=== PATIENT | male | born 1975 | race Caucasian/White ===

== ENCOUNTER 2020-08-08 13:24 | Emergency (ER) | payer OTHER, MEDICAID, SELFPAY ==
[2020-08-08 14:11] VITALS: BP 147/80; PULSE 75; RESP 16; TEMP 36.4; O2SAT 99
--- NOTE | 2020-08-08 17:05 | ED.EXTPRO ---
HPI - Extremity Problem General Chief complaint: Extremity Problem,Nontraumatic Stated complaint: DVT Time Seen by Provider: 08/08/20 16:57 Source: patient Mode of arrival: Ambulatory Limitations: no limitations History of Present Illness HPI Narrative: 45-year-old male who has a known right lower extremity DVT. He is on Xarelto. He states that he missed 1 day of his Xarelto at the end of last week. He states that after that he started having pain on the outside of his right leg. He immediately started taking his anticoagulation again. The discomfort is still there. He has not tried anything for his symptoms. Related Data Home Medications Medication Instructions Recorded Confirmed bupropion HCl 300 mg PO DAILY 08/08/20 08/08/20 divalproex [Depakote ER] mg PO DAILY 08/08/20 emtricitabine-tenofovir alafen 1 tab PO 08/08/20 [Descovy] rivaroxaban [Xarelto] 20 mg PO DAILY 08/08/20 08/08/20 Allergies Allergy/AdvReac Type Severity Reaction Status Date / Time No Known Drug Allergies Allergy Verified 08/08/20 14:13 Review of Systems Constitutional Constitutional: Denies fever(s) and Denies headache(s) ENT Ears, Nose, Mouth, and Throat: Denies headache(s) Cardiovascular Cardiovascular: Denies chest pain and Denies dyspnea Respiratory Respiratory: Denies dyspnea Gastrointestinal Gastrointestinal: Denies abdominal pain Musculoskeletal Comments: Right leg pain Integumentary/Breasts Skin/Breast: Denies lesions and Denies rash Neurologic Neurologic: Denies behavioral changes and Denies headache(s) Psychiatric Psychiatric: Denies behavioral changes Hematologic/Lymphatic On Anticoagulants: Yes Allergic/Immunologic Allergic/Immunologic: Denies urticaria Patient History Medical History DVT (deep venous thrombosis) Social History Smoking Status: Never smoker Smoking Status: Never smoker alcohol intake frequency: other Substance Use Type: marijuana Exam Initial Vital Signs Initial Vital Signs: Vital Signs Temperature 97.6 F 08/08/20 14:11 Pulse Rate 75 08/08/20 14:11 Respiratory Rate 16 08/08/20 14:11 Blood Pressure 147/80 H 08/08/20 14:11 Pulse Oximetry 99 08/08/20 14:11 Const General: cooperative and comfortable Limitations: mental status not altered HENMT Head: normal to inspection and normocephalic Resp Effort & Inspection: normal respiratory effort Cardio Rate: regular rate Skin Lesions: no lesions Rashes: no rashes Extrem General: normal to inspection, capillary refill normal and No edema Other: Tenderness to palpation along the lateral aspect of the right calf Psych Appearance: grossly normal and well kempt Course Vital Signs Vital signs: Vital Signs - 8 hr 08/08/20 14:11 Temperature 97.6 F Pulse Rate 75 Respiratory Rate 16 Blood Pressure 147/80 H Pulse Oximetry 99 MDM - Extremity (Nontraumatic) MDM Narrative Medical decision making narrative: Patient's skin looks unremarkable. Low suspicion for compartment syndrome. He does not have tenderness along the deep venous system. There is no swelling in his lower extremity. I feel we can hold on further workup for now. He was given return precautions and follow-up instructions. He expressed understanding and agreement. Discharge Plan Departure Patient Disposition: Home Clinical Impression: Pain in right leg Instructions: DI for Leg Pain Activity Restrictions/Additional Instructions: Recommend that you continue all of your medications as directed. Contact your primary provider for a follow-up. Return to the emergency department for any new or worsening symptoms Prescriptions: No Action divalproex [Depakote ER] 500 mg tablet extended release 24 hr PO DAILY RF: 0 bupropion HCl 300 mg tablet extended release 24 hr 300 mg PO DAILY RF: 0 Xarelto 20 mg tablet 20 mg PO DAILY RF: 0 Descovy 200-25 mg tablet 1 tab PO RF: 0 Referrals: Nilesh Pina MD [Primary Care Provider] -
== END 2020-08-08 17:10 | disposition home or self-care (01) ==
PROVIDERS: Emergency Provider Emergency Medicine; PCP Internal Medicine
DX: M79.604 Pain in right leg (principal); I82.401 Acute embolism and thrombosis of unspecified deep veins of right lower extremity; Z79.01 Long term (current) use of anticoagulants
CPT/HCPCS: 99281

== ENCOUNTER 2022-09-06 09:41 | Day surgery (SDC) | payer MEDICARE, MEDICAID, SELFPAY ==
[2022-09-06 09:58] VITALS: BP 146/84; PULSE 77; RESP 12; TEMP 36.4; O2SAT 100
[2022-09-06 10:06] VITALS: BMI 25.7
[2022-09-06] MEDS: LACTATED RINGERS 1,000 ML 100 ML IV (10:06)
--- NOTE | 2022-09-06 11:23 | P.HP_ITS ---
History of Present Illness History of Present Illness Date Patient Seen: 09/06/22 Time Patient Seen: 11:23 Chief complaint: Screening Colonoscopy Narrative: Filemon is here for his colonoscopy for colon cancer screening. See office note from July for details. [facility] Medical History (Updated 07/25/22 @ 15:43 by Trung Mistry MD) DVT (deep venous thrombosis) Surgical History (Updated 09/06/22 @ 09:58 by Henri Clark RN) History of appendectomy Social History household members: friend(s) Smoking Status: Never smoker alcohol intake: current Meds Home Medications and Allergies Home Medications Medication Instructions Recorded Confirmed Type bupropion HCl 300 mg 24 hr tablet, 300 mg PO DAILY 08/08/20 09/06/22 History extended release divalproex 500 mg tablet,extended mg PO DAILY 08/08/20 07/25/22 History release 24 hr (Depakote ER) emtricitabine 200 mg-tenofovir 1 tab PO 08/08/20 07/25/22 History alafenamide fumarate 25 mg tablet (Descovy) lithium carbonate 600 mg capsule 600 mg PO BEDTIME 07/25/22 07/25/22 History oxybutynin chloride 10 mg 10 mg PO DAILY 07/25/22 09/06/22 History tablet,extended release 24 hr rosuvastatin 10 mg tablet 10 mg PO DAILY 07/25/22 09/06/22 History Allergies Allergy/AdvReac Type Severity Reaction Status Date / Time No Known Drug Allergies Allergy Verified 07/25/22 15:22 Exam Vital Signs (past 8 hours): - 09/06/22 09:58 Temperature 97.5 F L Pulse Rate 77 Respiratory Rate 12 Blood Pressure 146/84 H Pulse Oximetry 100 Oxygen Delivery Method Room Air Oxygen Delivery Method Room Air Const General: healthy appearing Assessment & Plan Assessment and plan (1) Colon cancer screening: Status: Acute (2) History of hemorrhoids: Status: Acute Plan Reviewed risks and benefits of colonoscopy for colon cancer screening and he would like to proceed
--- NOTE | 2022-09-06 12:13 | PM.OP.COLON ---
Operative Date/Time/Diagnoses Date of procedure: 09/06/22 Time of procedure: 12:13 Pre-op diagnosis: Colon cancer screening Post-op diagnosis: same Procedure & Clinicians Study performed: Colonoscopy Same procedure as scheduled: Yes Surgeon: Trung Mistry Procedure Notes Procedure in detail: Surgeon: Trung Mistry MD Anesthesia: Jose Angel Davidson CRNA Procedure: The patient was brought to the endoscopy suite, placed in left lateral decubitus position. The patient was connected to monitoring devices. A time-out was performed. Sedation was administered. Once the patient was adequately sedated, a digital rectal exam was performed and was normal. The scope was then inserted and advanced with some difficulty to the cecum where the appendiceal orifice was identified and photographed. The patient had to be repositioned and abdominal pressure had to be applied to get to the cecum. Terminal ileum was intubated and no abnormalities were seen. The scope was then slowly withdrawn over greater than 6 minutes. The mucosa was thoroughly inspected. No polyps were seen. The scope was retroflexed in the rectum. No other abnormalities were seen. The scope was straightened and removed. The patient was awakened and brought to recovery. Scope withdrawal time: 8 minutes Sedation time: 32 minutes EBL: 0 Findings: Tortuous but otherwise normal colon Post-procedure Recommendations: Colonoscopy in 10 years Disposition: PACU
[2022-09-06 12:18] VITALS: BP 125/91; PULSE 99; RESP 16; TEMP 36.4; O2SAT 96
[2022-09-06 12:24] VITALS: BP 117/83; PULSE 74; RESP 14; O2SAT 96
[2022-09-06 12:27] VITALS: BP 114/80; PULSE 67; RESP 14; TEMP 36.4; O2SAT 98
== END 2022-09-06 12:42 | disposition home or self-care (01) ==
PROVIDERS: PCP Internal Medicine; Referring Provider Surgery; Visit Provider Surgery
PROC: 0DJD8ZZ Inspection of Lower Intestinal Tract, Via Natural or Artificial Opening Endoscopic (ICD-10-PCS; CPT 45378; principal; 2022-09-06 10:30)
DX: Z12.11 Encounter for screening for malignant neoplasm of colon (principal)
CPT/HCPCS: G0121; 45378; J2704